=== PATIENT | female | born 1945 | race African-American/Black ===

== ENCOUNTER 2016-12-09 08:17 | Outpatient (CLI) | payer MEDICARE ==
[2016-12-09 12:16] LABS: Bilirubin Negative (Negative); Blood, Urine Negative (Negative); Glucose, Urine (Dipstick) Negative (Negative); Ketone, Urine Negative (Negative); Nitrite Negative (Negative); Protein, Urine (Dipstick) 30 mg/dL (Neg-Trace); Urobilinogen 0.2 mg/dL (0.2-1.0)
[2016-12-09 12:26] LABS: RBC/HPF 0-3 HPF (0-3); Squamous Epithelial 0-3 HPF (0-3)
[2016-12-09 12:27] LABS: Bacteria/HPF 1+ HPF (None Seen)
[2016-12-09 12:34] LABS: ALT (SGPT) 20 U/L (0-55); AST (SGOT) 23 U/L (5-34); Alkaline Phosphatase 82 U/L (40-150); Anion Gap 14 mmol/L (10-20); BUN (Urea Nitrogen) 13 mg/dL (9.8-20.1); Bilirubin, Total 0.5 mg/dL (0.2-1.2); Calc. Creatinine Clearance 0 mL/min (70-130); Calcium 9.1 mg/dL (7.8-10.44); Carbon Dioxide 23 mmol/L (23-31); Chloride 106 mmol/L (98-107); Estimated GFR-MDRD 80; Globulin 3.3 g/dL (2.4-3.5); LDL Cholesterol, Calculated 94 mg/dL; Protein, Total 7.1 g/dL (5.8-8.1)
[2016-12-09 12:37] LABS: #Basophils 0.1 thou/uL (0.0-0.2); #Eosinphils 0.2 thou/uL (0.0-0.7); #Lymphocytes 2.1 thou/uL (1.20-3.40); #Monocytes 0.5 thou/uL (0.11-0.59); #Neutrophils 3.2 thou/uL (1.40-6.50); %Basophils 1.1 % (0.0-1.0); %Eosinophils 4.1 % (0.0-10.0); %Lymphocytes 34.5 % (21.0-51.0); %Monocytes 7.4 % (0.0-10.0); Hematocrit 38.1 % (36.0-47.0); Mean Platelet Volume 7.3 fL (7.4-10.4); Red Blood Cell (RBC) Count 4.28 mill/uL (4.20-5.40); White Blood Cell (WBC) Count 6.1 thou/uL (4.8-10.8)
== END 2016-12-09 08:18 | disposition home or self-care (01) ==
LOC: NAVSJIPCSP 08:17
PROVIDERS: ATTEND Internal Medicine
DX: E78.5 Hyperlipidemia, unspecified (principal); I25.10 Atherosclerotic heart disease of native coronary artery without angina pectoris; I11.9 Hypertensive heart disease without heart failure; M81.0 Age-related osteoporosis without current pathological fracture; Z79.899 Other long term (current) drug therapy
CPT/HCPCS: 36415; 80053; 80061; 81001; 85025

== ENCOUNTER 2017-04-17 08:29 | Outpatient (CLI) | payer MEDICARE ==
[2017-04-17 12:55] LABS: Cardiac Risk 3.5 (Less than 4.5)
== END 2017-04-17 08:30 | disposition home or self-care (01) ==
LOC: NAVSJIPCSP 08:29
PROVIDERS: ATTEND Internal Medicine
DX: E78.5 Hyperlipidemia, unspecified (principal); Z79.899 Other long term (current) drug therapy
CPT/HCPCS: 36415; 80061

== ENCOUNTER 2017-07-20 08:45 | Outpatient (CLI) | payer MEDICARE ==
[2017-07-20 12:54] LABS: Cardiac Risk 3.5 (Less than 4.5)
== END 2017-07-20 08:46 | disposition home or self-care (01) ==
LOC: NAVSJIPCSP 08:45
PROVIDERS: ATTEND Internal Medicine
DX: E78.5 Hyperlipidemia, unspecified (principal); Z79.899 Other long term (current) drug therapy
CPT/HCPCS: 36415; 80061

== ENCOUNTER 2018-02-17 15:26 | Emergency (ER) | payer MEDICARE, OTHER | END 2018-02-17 15:56 | disposition home or self-care (01) | LOC: NAV ERS 15:26 | DX: S05.91XA Unspecified injury of right eye and orbit, initial encounter (principal); I10 Essential (primary) hypertension; E78.5 Hyperlipidemia, unspecified; Z79.899 Other long term (current) drug therapy; W22.8XXA Striking against or struck by other objects, initial encounter | CPT/HCPCS: 99283 ==